=== PATIENT | male | born 1955 | race Two or more races ===

== ENCOUNTER 2020-07-16 06:53 | Day surgery (SDC) | payer OTHER | END 2020-07-16 10:50 | disposition home or self-care (01) | LOC: AMB-ENDOS 06:53 | PROVIDERS: ATTEND Surgery | DX: K62.0 Anal polyp (principal); A63.0 Anogenital (venereal) warts; K64.8 Other hemorrhoids; Z20.822 Contact with and (suspected) exposure to COVID-19 ==